=== PATIENT | female | born 1950 | race Caucasian/White ===

== ENCOUNTER 2018-03-13 21:18 | Emergency (ER) | payer OTHER ==
[~2018-03-13] VITALS: Ht 162.6 cm; Wt 68.0 kg
[~2018-03-13 21:18] MED LIST: ACET-1603 PO; CITA10TA59 PO; ENAL20TA70 PO
[2018-03-13 21:38] VITALS: BP 172/80
[2018-03-13 22:55] LABS: Basophils # (auto) 0 uL; Basophils % (auto) 0.2 % (0.0-2.0); Eosinophils # (auto) 0.1 uL; Eosinophils % (auto) 1.6 % (0.0-7.0); Hematocrit 38.5 % (36.0-46.0); Hemoglobin 13.1 g/dL (12.2-16.2); Lymphocytes # (auto) 2.5 uL; Lymphocytes % (auto) 32.1 % (10.0-50.0); Mean Corpuscular Hemoglobin 33.1 pg (28.0-32.0); Mean Corpuscular Hgb Conc. 34.1 g/dL (32.0-36.0); Mean Corpuscular Volume 97.1 fL (80.0-100.0); Monocytes # (auto) 0.5 uL; Monocytes % (auto) 5.8 % (0.0-12.0); Neutrophils # (auto) 4.8 uL; Neutrophils % (auto) 60.3 % (37.0-80.0); Nucleated Red Blood Cells % 0.1 %; Platelet Count (auto) 174 10^3/uL (140-450); Red Blood Cells 3.97 10^6/uL (4.0-5.20); Red Cell Distribution Width 13.2 % (11.8-14.3); White Blood Cell 7.9 10^3/uL (4.4-10.8)
[2018-03-13 23:07] LABS: Albumin 3.9 g/dL (3.4-5.0); Anion Gap 5 (5-15); Blood Urea Nitrogen 24 mg/dL (7-18); Calcium 9.3 mg/dL (8.5-10.1); Carbon Dioxide 26 mmol/L (21-32); Chloride 106 mmol/L (98-107); Glucose 95 mg/dL (74-106); Potassium 4.3 mmol/L (3.5-5.1); Sodium 137 mmol/L (136-145)
[2018-03-13 23:20] LABS: Alanine Aminotransferase 16 U/L (13-56); Alkaline Phosphatase 77 U/L (45-117); Aspartate Aminotransferase 18 U/L (15-37); BUN/Creatinine Ratio 22.2; Bilirubin, Total 0.2 mg/dL (0.2-1.0); GFR African American 65 mL/min; GFR Non-African American 53 mL/min; Total Protein 7.9 g/dL (6.4-8.2)
== END 2018-03-14 00:06 | disposition left against medical advice (07) ==
LOC: ER 21:18
DX: R07.9 Chest pain, unspecified (principal); Z53.21 Procedure and treatment not carried out due to patient leaving prior to being seen by health care provider
CPT/HCPCS: 36415; 71046; 80053; 84484; 85025

== ENCOUNTER → 2019-06-12 | Emergency (ER) | payer OTHER ==
[~2019-06-12] VITALS: Ht 162.6 cm; Wt 63.5 kg
[~2019-06-12] MED LIST changes: +ENAL20TA PO; -ENAL20TA70 PO; +MORPHINE SULFATE 10 MG/ML INJ 1ML SDV IV ONE; +ONDANSETRON HCL 4 MG/2 ML VIAL IV ONE
[2019-06-12 19:47] VITALS: BP 176/84
== END | disposition home or self-care (01) ==
LOC: ER 18:39
DX: S22.42XA Multiple fractures of ribs, left side, initial encounter for closed fracture (principal); S93.402A Sprain of unspecified ligament of left ankle, initial encounter; S00.93XA Contusion of unspecified part of head, initial encounter; M25.512 Pain in left shoulder; M54.2 Cervicalgia; J44.9 Chronic obstructive pulmonary disease, unspecified; I10 Essential (primary) hypertension; F17.210 Nicotine dependence, cigarettes, uncomplicated; Z88.8 Allergy status to other drugs, medicaments and biological substances; Z79.899 Other long term (current) drug therapy; W01.0XXA Fall on same level from slipping, tripping and stumbling without subsequent striking against object, initial encounter; Y93.89 Activity, other specified; Y92.89 Other specified places as the place of occurrence of the external cause; Y99.8 Other external cause status
CPT/HCPCS: 70450; 71101; 72125; 73030; 73600; 96374; 96375; 99285; J2270; J2405

== ENCOUNTER 2023-08-31 15:35 | Emergency (ER) | payer OTHER, MEDICAID ==
[~2023-08-31] VITALS: Ht 162.6 cm; Wt 70.4 kg
[~2023-08-31 15:35] MED LIST changes: -CITA10TA59 PO; +CITA10TA8 PO; +ENAL1TAB48 PO; -ENAL20TA PO; -MORPHINE SULFATE 10 MG/ML INJ 1ML SDV IV ONE; -ONDANSETRON HCL 4 MG/2 ML VIAL IV ONE
[2023-08-31 20:00] LABS: Basophils # (auto) 0 10 ^3/uL (0-0.2); Basophils % (auto) 0.6 % (0.0-2.0); Eosinophils # (auto) 0.1 10 ^3/uL (0-0.8); Eosinophils % (auto) 1.5 % (0.0-7.0); Hematocrit 41.7 % (36.0-46.0); Hemoglobin 14.2 g/dL (12.2-16.2); Lymphocytes # (auto) 2.4 10 ^3/uL (0.4-5.4); Lymphocytes % (auto) 34.8 % (10.0-50.0); Mean Corpuscular Hemoglobin 32.7 pg (28.0-32.0); Mean Corpuscular Hgb Conc. 34.1 g/dL (32.0-36.0); Monocytes # (auto) 0.4 10 ^3/uL (0-1.3); Monocytes % (auto) 5.1 % (0.0-12.0); Nucleated Red Blood Cells % 0.1 %; Red Blood Cells 4.34 10^6/uL (4.0-5.20); Red Cell Distribution Width 13.6 % (11.8-14.3); White Blood Cell 6.9 10^3/uL (4.4-10.8)
[2023-08-31] MEDS: ACETAMINOPHEN 500 MG TAB PO ONE (20:13)
[2023-08-31 20:18] VITALS: BP 139/69; RESP 16; O2SAT 96
[2023-08-31 20:18] LABS: Alanine Aminotransferase 20 U/L (7-40); Albumin 4.9 g/dL (3.2-4.8); Alkaline Phosphatase 69 U/L (46-116); Anion Gap 3 (5-15); Aspartate Aminotransferase 22 U/L (13-40); BUN/Creatinine Ratio 8.4 (10.0-20.0); Bilirubin, Total 0.4 mg/dL (0.2-1.0); Blood Urea Nitrogen 7 mg/dL (9-23); Calcium 10.1 mg/dL (8.7-10.4); Carbon Dioxide 24 mmol/L (20-30); Chloride 108 mmol/L (98-107); Glucose 106 mg/dL (74-106); Potassium 4.2 mmol/L (3.5-5.1); Sodium 135 mmol/L (136-145); Total Protein 8.1 g/dL (5.7-8.2)
[2023-08-31] MEDS ORDERED: IBUP-1454 PO (20:38)
[2023-08-31 20:39] VITALS: PULSE 56
== END 2023-09-01 02:47 | disposition home or self-care (01) ==
LOC: ER 15:35
DX: R07.89 Other chest pain (principal); I10 Essential (primary) hypertension; J44.9 Chronic obstructive pulmonary disease, unspecified; F41.9 Anxiety disorder, unspecified; F32.9 Major depressive disorder, single episode, unspecified; F17.210 Nicotine dependence, cigarettes, uncomplicated; Z88.8 Allergy status to other drugs, medicaments and biological substances; Z79.899 Other long term (current) drug therapy; W01.0XXA Fall on same level from slipping, tripping and stumbling without subsequent striking against object, initial encounter; Y93.89 Activity, other specified; Y92.89 Other specified places as the place of occurrence of the external cause; Y99.8 Other external cause status
CPT/HCPCS: 36415; 71046; 71250; 80053; 84484; 85025; 93005